=== PATIENT | female | born 1990 | race Caucasian/White ===

== ENCOUNTER 2016-06-05 15:28 | Emergency (ER) | payer OTHER ==
[~2016-06-05] VITALS: Ht 175.3 cm; Wt 67.9 kg
[2016-06-05 15:44] VITALS: TEMP 36.8; Ht 175.3 cm; Wt 67.9 kg
--- NOTE | 2016-06-05 15:59 | EMERGENCY ROOM VISIT NOTE ---
History Report prepared by Clara: Paula Suarez Under the Supervision of: Dr. Mili Xiao M.D. First contact with patient: 15:48 Chief Complaint: URINARY SYMPTOMS Stated Complaint: RECURRANCE OF UTI History of Present Illness The patient is a 25 year old female who presents to the Emergency Room with complaints of persistent urinary symptoms that began over the past few days. She states that she has noticed dysuria and hematuria. Her current discomfort is a 5/10 in severity The patient was initially diagnosed with a UTI at a hospital in [place] on May 28. The patient was put on Keflex 4x a day for 3 days and had resolution of her symptoms initially. She feels that her urinary tract infection may have recurred. Denies fever, vomiting, or other complaints. There is no chance of . Source of History: patient Onset: a few days [employer] Position: other () Symptom Intensity: 5/10 Quality: other (dysuria, hematuria) Timing: other (persistent) Associated Symptoms: No fevers, No vomiting Review of Systems See HPI for pertinent positives & negatives. A total of 10 systems reviewed and were otherwise negative. Past Medical & Surgical Medical Problems: (1) UTI (urinary tract infection) Family History No pertinent family history stated. Social History Smoking Status: Never Smoker Marital Status: single Occupation Status: unemployed Current/Historical Medications Scheduled Sulfa/Trimethoprim (Bactrim Ds 800MG/160MG), 1 TAB PO BID Allergies Coded Allergies: No Known Allergies (Unverified , 06/05/16) Physical Exam Vital Signs Date Time Temp Pulse Resp B/P Pulse Ox O2 Delivery O2 Flow Rate FiO2 06/05/16 16:54 73 16 117/62 97 Room Air 06/05/16 15:44 36.8 88 16 125/73 97 Room Air Physical Exam Vital signs reviewed. General: Well-appearing 25 year old female, in no significant distress. HEENT: No scleral icterus, PERRLA, neck supple. Atraumatic. Cardiovascular: Regular rate and rhythm, no extra sounds. Pulmonary: Clear to auscultation bilaterally, normal work of breathing. Abdomen: Soft, nontender, nondistended, positive bowel sounds. Musculoskeletal: Atraumatic, no peripheral edema, no CVA tenderness. Neurologic: Patient awake alert and oriented x 3 Skin: Warm, dry, no rash Medical Decision & Procedures Laboratory Results Test 06/05/16 16:05 Urine Color RED Urine Appearance CLEAR (CLEAR) Urine pH 7.5 (4.5-7.5) Urine Specific [place] 1.000 (1.000-1.030) Urine Protein 2+ (NEG) Urine Glucose (UA) NEG (NEG) Urine Ketones NEG (NEG) Urine Occult Blood 3+ (NEG) Urine Nitrite NEG (NEG) Urine Bilirubin NEG (NEG) Urine Urobilinogen NEG (NEG) Urine Leukocyte Esterase LARGE (NEG) Urine WBC (Auto) >30 /hpf (0-5) Urine RBC (Auto) >30 /hpf (0-4) Urine Hyaline Casts (Auto) 10-30 /lpf (0-5) Urine Epithelial Cells (Auto) >30 /lpf (0-5) Urine Bacteria (Auto) 2+ (NEG) Urine Yeast (Auto) (NONE PRSENT) Urine Test NEG (NEG) Laboratory results per my review. Medications Administered Medications (Trade) Dose Ordered Sig/Sonam Route Start Time Stop Time Status Last Admin Dose Admin Trimethoprim/ Sulfamethoxazole (Septra Ds 800/ 160MG Tab) 1 tab NOW STAT PO 06/05/16 16:40 06/05/16 16:41 DC 06/05/16 16:49 1 TAB ED Course 1552: The patient was evaluated in room C2. A complete history and physical examination was performed. 1640: Ordered Trimethoprim/Sulfamethoxazole 1 tab PO. 1650: Upon reevaluation, the patient was resting comfortably. I discussed findings with her. She verbalized agreement of the treatment plan. The patient was discharged home. Medical Decision Differential diagnosis: Cystitis, pyelonephritis, kidney stone, vaginitis, recurrent UTI. This patient was evaluated and appeared to be in no significant distress. Physical examination is fairly unrevealing. Urinalysis is concerning for infection, this will be sent for culture. The patient recently finished a course of Keflex. She will be placed on Bactrim DS 1 tablet twice daily for 7 days as this is a fairly short term recurrence. Patient will follow-up with her physician for reevaluation and return to the ER for worsening of symptoms or any medical concerns. Impression Primary Impression: UTI (urinary tract infection) Scribe Attestation The scribe's documentation has been prepared under my direction and personally reviewed by me in its entirety. I confirm that the note above accurately reflects all work, treatment, procedures, and medical decision making performed by me. Departure Information Dispostion Home / Self-Care Prescriptions Sulfa/Trimethoprim (Bactrim Ds 800MG/160MG) Tab 1 TAB PO BID, #14 TAB Prov: Mili Xiao M.D. 06/05/16 Referrals No Doctor, Assigned (PCP) Patient Instructions A Signature Page, [facility] Additional Instructions Diagnosis: UTI Drink plenty clear fluids. Ibuprofen 600 mg every 6 hours as needed for pain with food. Bactrim DS 1 tablet twice daily for 7 days. Follow-up with your physician for reevaluation in one to 2 weeks. Return to the ER for worsening of symptoms or any medical concerns.
[2016-06-05 16:30] LABS: URINE APPEARANCE CLEAR (CLEAR); URINE BILIRUBIN NEG (NEG); URINE COLOR RED; URINE EPITHELIAL CELL AUTO >30 /lpf (0-5); URINE NITRITE NEG (NEG); URINE PH 7.5 (4.5-7.5); UROBILINOGEN NEG (NEG); ZZUR CULT IF INDIC CLEAN CATCH YES
[2016-06-05 16:32] LABS: MANUAL MICROSCOPIC REQUIRED? NO; REVIEW REQ? YES; SULFASALICYLIC ACID POS (NEG)
[2016-06-05] MEDS ORDERED: SULFAMETHOXAZOLE/TRIMETHOPRIM DS 800/160MG TAB PO STA (16:40)
[2016-06-05] MEDS ORDERED: SULF800T23 PO (16:41)
[2016-06-05 16:54] VITALS: BP 117/62; PULSE 73; O2SAT 97
--- NOTE | 2016-06-07 13:45 | Pharmacy Progress Note ---
ED Pharmacist Culture FollowUp Date of Service: Jun 07, 2016. Patient was sent home with a prescription for Bactrim DS 1 tablet PO BID x 7 days, which should cover the E Coli growing from the patient's Urine culture from 06/05/16. No action required at this time as this is appropriate therapy for uncomplicated cystitis that failed a 3 days course of Keflex.
== END 2016-06-05 16:55 | disposition home or self-care (01) ==
LOC: C.EDB 15:29 → C.EDC 16:55
DX: N39.0 Urinary tract infection, site not specified (principal)

== ENCOUNTER → 2016-06-18 | Outpatient (CLI) | payer OTHER ==
[~2016-06-18] MED LIST: SULF800T23 PO
[2016-06-18 18:46] LABS: URINE APPEARANCE CLEAR (CLEAR); URINE BILIRUBIN NEG (NEG); URINE COLOR YELLOW; URINE EPITHELIAL CELL AUTO 0-5 /lpf (0-5); URINE NITRITE NEG (NEG); URINE SPECIFIC GRAVITY 1.001 (1.000-1.030); UROBILINOGEN NEG (NEG)
[2016-06-18 18:48] LABS: MANUAL MICROSCOPIC REQUIRED? NO; REVIEW REQ? NO
== END | disposition home or self-care (01) ==
LOC: C.LABSPEC 11:45
PROVIDERS: ATTEND Obstetrics & Gynecology
DX: N30.00 Acute cystitis without hematuria (principal)